=== PATIENT | male | born 1975 | race Hispanic/Latino ===

== ENCOUNTER 2019-05-07 10:28 | Emergency (ER) | payer SELFPAY ==
--- NOTE | 2019-05-07 11:56 | Emergency Department Report ---
<MICHELLE BAIRES - Last Filed: 05/07/19 14:35> ED Chest Pain HPI - General Chief Complaint: Chest Pain Stated Complaint: CHEST PAIN Time Seen by Provider: 05/07/19 10:40 Source: patient, EMS, old records reviewed Mode of arrival: Stretcher Limitations: No Limitations - History of Present Illness Initial Comments: 43-year-old male with a past medical history of hypertension noncompliant with meds x1 month, asthma, and tobacco use presents to the hospital complains of chest pain since this morning. Patient complains of a left-sided intermittent tightness without aggravating or alleviating factors. Pain occurred at rest whi le lying in the bed. EMS came to the home and pain resolved and therefore patient did not initially come to the ED. Pain returned and therefore patient recalled EMS and was brought to the hospital. Aspirin 324 mg taken prior to arrival. Patient complains of numbness to his left hand and forearm associated with chest pain but he also has a history of a laceration to his left forearm 1 year ago and has chronic neurosensory deficits. Patient denies associated shortness of breath, nausea, vomiting, or diaphoresis patient also has had chronic intermittent left-sided chest pain that has been similar to this episode for the past 2 years. This March 2019 he was admitted to the Medical and re ports having a cardiac cath that was negative for blockages as per patient. Patient also denies family history of CAD, recent travel, calf tenderness, leg edema, history of PE/DVT. Patient admits to marijuana use but denies cocaine. Pt has not followed up with a pmd as directed. At 1:50 PM received previous records from [facility] which include: 11/24/2018 patient had a negative pharmacologic stress nuclear study. Calculated EF 50%. 02/04/2018 Doppler echo: LVEF 55 to 60% with normal wall thickness and normal left atrial pressure and diastolic function. LV relaxation is normal. Normal left atrial pressure with grade 1 diastolic dysfunction 04/05/2019: Cardiac cath: Coronary circulation is right dominant. Left main normal. LAD normal. Circumflex normal. RCA normal. With recommendation to optimize medical therapy. Severity scale (0 -10): 9 - Related Data Previous Rx's Medication Instructions Recorded Last Taken Type Aspirin [Aspirin BABY CHEW TAB] 81 mg PO QDAY #30 tab.chew 01/25/18 Unknown Rx Magnesium Oxide [Mag-Ox] 400 mg PO QDAY #10 tablet 01/25/18 Unknown Rx Amlodipine Besylate [Norvasc] 5 mg PO DAILY #30 tablet 05/07/19 Unknown Rx Aspirin [Aspirin BABY CHEW TAB] 81 mg PO QDAY #30 tab.chew 05/07/19 Unknown Rx traMADoL [Ultram 50 MG tab] 50 mg PO Q6HR PRN #20 tablet 05/07/19 Unknown Rx Allergies Allergy/AdvReac Type Severity Reaction Status Date / Time shellfish derived Allergy Swelling Verified 01/25/18 13:05 Heart Score - HEART Score History: Slightly suspicious EKG: Non-specific Age: 45-65 Risk factors: 1-2 risk factors Troponin: < normal limit HEART Score: 3 ED Review of Systems Comment: All other systems reviewed and negative ED Past Medical Hx - Past Medical History Previous Medical History?: Yes Hx Hypertension: Yes Hx Asthma: Yes Additional medical history: hernia - Surgical History Past Surgical History?: Yes Additional Surgical History: left leg surgery (antonino placed) - Social History Smoking Status: Current Every Day Smoker Substance Use Type: None - Medications Home Medications: Home Medications Medication Instructions Recorded Confirmed Last Taken Type Aspirin [Aspirin BABY CHEW TAB] 81 mg PO QDAY #30 tab.chew 01/25/18 Unknown Rx Magnesium Oxide [Mag-Ox] 400 mg PO QDAY #10 tablet 01/25/18 Unknown Rx Amlodipine Besylate [Norvasc] 5 mg PO DAILY #30 tablet 05/07/19 Unknown Rx Aspirin [Aspirin BABY CHEW TAB] 81 mg PO QDAY #30 tab.chew 05/07/19 Unknown Rx traMADoL [Ultram 50 MG tab] 50 mg PO Q6HR PRN #20 tablet 05/07/19 Unknown Rx ED Physical Exam - General Limitations: No Limitations - Other Other exam information: General: No acute distress Head: Atraumatic Eyes: normal appearance ENT: Moist mucous membranes Neck: Normal appearance, no midline tenderness Chest: Clear to auscultation bilaterally CV: Regular rate and rhythm, reproducible anterior left chest wall tenderness to palpation Abdomen: Soft, normal bowel sounds, nontender, nondistended, no rebound or guarding Back: Normal inspection Extremity: previous surgical scar noted to the distal forearm/volar surface. Decreased sensation to the thenar eminence. No calf tenderness or leg edema Neuro: Alert O x 3, no facial asymmetry, speech clear, no gross motor sensory deficit Psych: Appropriate behavior Skin: No rash ROSALINO score - Rosalino Score Age > 65: (0) No Aspirin use within the Past 7 Days: (0) No 3 or more CAD Risk Factors: (0) No 2 or more Angina events in past 24 hrs: (0) No Known CAD with more than 50% Stenosis: (0) No Elevated Cardiac Markers: (0) No ST Deviation Greater than 0.5mm: (0) No ROSALINO Score: 0 ED Medical Decision Making - Lab Data Result diagrams: 05/07/19 11:44 05/07/19 11:44 Lab Results 05/07/19 05/07/19 05/07/19 Range/Units 11:44 11:44 11:44 WBC 4.8 (4.5-11.0) K/mm3 RBC 4.06 (3.65-5.03) M/mm3 Hgb 13.7 (11.8-15.2) gm/dl Hct 39.9 (35.5-45.6) % MCV 98 H (84-94) fl MCH 34 H (28-32) pg MCHC 34 (32-34) % RDW 16.5 H (13.2-15.2) % Plt Count 80 L (140-440) K/mm3 Lymph % (Auto) 19.2 (13.4-35.0) % Davie % (Auto) 11.4 H (0.0-7.3) % Eos % (Auto) 0.5 (0.0-4.3) % Baso % (Auto) 0.7 (0.0-1.8) % Lymph # 0.9 L (1.2-5.4) K/mm3 Davie # 0.6 (0.0-0.8) K/mm3 Eos # 0.0 (0.0-0.4) K/mm3 Baso # 0.0 (0.0-0.1) K/mm3 Seg Neutrophils % 68.2 (40.0-70.0) % Seg Neutrophils # 3.3 (1.8-7.7) K/mm3 PT 13.5 (12.2-14.9) Sec. INR 1.02 (0.87-1.13) Sodium 138 (137-145) mmol/L Potassium 4.1 (3.6-5.0) mmol/L Chloride 101.1 (98-107) mmol/L Carbon Dioxide 21 L (22-30) mmol/L Anion Gap 20 mmol/L BUN 8 L (9-20) mg/dL Creatinine 0.6 L (0.8-1.5) mg/dL Estimated GFR > 60 ml/min BUN/Creatinine Ratio 13 % Glucose 96 (75-100) mg/dL Calcium 8.8 (8.4-10.2) mg/dL Troponin T < 0.010 (0.00-0.029) ng/mL - EKG Data -: EKG Interpreted by [facility] EKG shows normal: sinus rhythm, ST-T waves (no stemi) Rate: normal - EKG Data When compared to previous EKG there are: no significant change - Radiology Data Radiology results: report reviewed cxr: naf - Medical Decision Making PERC PE score 0 therefore low risk for PE pt is noted to have thrombocytopenia which is chronic but slightly worse than previous on record Patient's chest pain is atypical and after medical record review patient has had negative recent cardiac cath Patient's intermittent numbness to left forearm and hand are also chronic and likely related to previous wrist injury Patient has chronic hypertension, thrombocytopenia, and chronic atypical chest pain. Patient be discharged on aspirin 81 mg, blood pressure medication (pt has been on norvasc in the past), and once again encouraged to follow-up as an outpatient. - Differential Diagnosis Atypical chest pain, OH, unstable angina, PE, chest wall pain Critical Care Time: No ED Disposition Clinical Impression: Atypical chest pain, Chronic hypertension, Thrombocytopenia Disposition: DC- TO HOME OR SELFCARE Is pt being admited?: No Does the pt Need Aspirin: No Condition: Stable Instructions: Chest Pain (ED), Hypertension (ED), Thrombocytopenia (ED) Additional Instructions: Take the medication as prescribed. Follow-up with your doctor or doctor/clinic provided. Return if symptoms worsen as indicated by your discharge instructions. Prescriptions: Aspirin [Aspirin BABY CHEW TAB] 81 mg PO QDAY #30 tab.chew Amlodipine Besylate [Norvasc] 5 mg PO DAILY #30 tablet traMADoL [Ultram 50 MG tab] 50 mg PO Q6HR PRN #20 tablet PRN Reason: Pain Referrals: PRIMARY MD LINDSAY [Primary Care Provider] - 3-5 Days TRICIA MURCIA MD [Staff Physician] - 3-5 Days [facility] [Provider Group] - 3-5 Days <MARIA DEL ROSARIO HUBBARD - Last Filed: 05/07/19 15:23> ED Review of Systems ROS: Stated complaint: CHEST PAIN Other details as noted in HPI ED Course Vital Signs 05/07/19 05/07/19 05/07/19 10:38 10:42 11:00 Temperature 98.4 F Pulse Rate 64 64 67 Respiratory 16 16 14 Rate Blood Pressure 142/62 139/85 Blood Pressure 139/85 [Left] O2 Sat by Pulse 98 98 99 Oximetry 05/07/19 05/07/19 05/07/19 11:18 11:46 12:00 Temperature Pulse Rate 60 65 Respiratory 14 Rate Blood Pressure 142/71 137/75 Blood Pressure [Left] O2 Sat by Pulse 99 98 98 Oximetry 05/07/19 05/07/19 12:15 12:30 Temperature Pulse Rate 60 60 Respiratory 12 13 Rate Blood Pressure 139/81 152/80 Blood Pressure [Left] O2 Sat by Pulse 98 99 Oximetry - Reevaluation(s) Reevaluation #1: 05/07/19 15:22 Patient second troponin is negative and the patient is safe for discharge at this time. ED Medical Decision Making - Lab Data Result diagrams: 05/07/19 11:44 05/07/19 11:44 Critical care attestation.: If time is entered above; I have spent that time in minutes in the direct care of this critically ill patient, excluding procedure time. ED Disposition Is pt being admited?: No Does the pt Need Aspirin: No
--- NOTE | 2019-05-07 11:57 | XRay Report ---
CHEST 2 VIEWS INDICATION: Chest Pain. COMPARISON: 01/25/2018 FINDINGS: Support devices: None. Heart: Within normal limits. Lungs/pleura: No acute air space or interstitial disease. No pneumothorax. Additional findings: None. IMPRESSION: No acute findings. Signer Name: Jorge Vuong Jr, MD Signed: 05/07/2019 11:53 AM Workstation Name: [id number]
[2019-05-07 12:05] LABS: Basophils % (Auto) 0.7 % (0.0-1.8); Eosinophils % (Auto) 0.5 % (0.0-4.3); Hematocrit 39.9 % (35.5-45.6); Hemoglobin 13.7 gm/dl (11.8-15.2); Lymphocytes # (Auto) 0.9 K/mm3 (1.2-5.4); Lymphocytes % (Auto) 19.2 % (13.4-35.0); Mean Corpuscular HGB Conc 34 % (32-34); Mean Corpuscular Volume 98 fl (84-94); Monocytes # (Auto) 0.6 K/mm3 (0.0-0.8); Monocytes % (Auto) 11.4 % (0.0-7.3); Red Blood Count 4.06 M/mm3 (3.65-5.03); Red Cell Distribution Width 16.5 % (13.2-15.2)
[2019-05-07 12:12] LABS: Platelet Count 80 K/mm3 (140-440)
[2019-05-07 12:15] LABS: INR 1.02 (0.87-1.13)
[2019-05-07 12:27] LABS: BUN/Creatinine Ratio 13; Blood Urea Nitrogen 8 mg/dL (9-20); Calcium 8.8 mg/dL (8.4-10.2); Hemolysis Index 4
[2019-05-07] MEDS ORDERED: KETOROLAC 30 MG/1 ML INJ IV ONE (12:40)
[2019-05-07 14:35] LABS: Amphetamine Screen,Urine PRESUMPTIVE NEGATIVE; Benzodiazepines Screen,Urine PRESUMPTIVE NEGATIVE; Cannabinoid Screen,Urine PRESUMPTIVE NEGATIVE; Cocaine Screen,Urine PRESUMPTIVE NEGATIVE; Methadone Screen,Urine PRESUMPTIVE NEGATIVE; Opiate Screen,Urine PRESUMPTIVE NEGATIVE
[2019-05-07 15:33] VITALS: BP 148/77
== END 2019-05-07 15:38 | disposition home or self-care (01) ==
LOC: ED 10:28
DX: R07.89 Other chest pain (principal); D69.6 Thrombocytopenia, unspecified; J45.909 Unspecified asthma, uncomplicated; F17.200 Nicotine dependence, unspecified, uncomplicated
CPT/HCPCS: 36415; 71046; 80048; 80307; 84484; 85025; 85610; 93005; 93010; 96374; 99285; J1885